=== PATIENT | female | born 1960 | race Caucasian/White ===

== ENCOUNTER → 2020-05-21 13:23 | Outpatient (CLI) | payer OTHER, SELFPAY ==
--- NOTE | ~2020-05-21 | MM_ITS ---
EXAMINATION: MM screening tamar BI w nataliia HISTORY: Screening TECHNIQUE: Craniocaudal and mediolateral oblique 3-D tomosynthesis images were obtained and synthetic 2-D images were generated. CAD analysis was submitted and interpreted. COMPARISON: No prior mammogram is available for comparison at this institution. BREAST PARENCHYMAL COMPOSITION: There are scattered areas of fibroglandular density. FINDINGS: There is no evidence of suspicious mass, calcification, or architectural distortion to sugg est malignancy in either breast. There has been no suspicious interval change. IMPRESSION: 1. No mammographic evidence of malignancy. 2. Recommend routine screening mammography in one year. BI-RADS Category 1: Negative Reviewed, dictated and finalized at location A.
== END ==
PROVIDERS: PCP Family Medicine; Visit Provider Nurse Practitioner Family
DX: Z12.31 Encounter for screening mammogram for malignant neoplasm of breast (principal)
CPT/HCPCS: 77063; 77067

== ENCOUNTER 2020-07-19 10:30 | Emergency (ER) | payer OTHER, SELFPAY ==
--- NOTE | ~2020-07-19 | XR_ITS ---
EXAMINATION: XR chest 2V 07/19/2020 10:53 INDICATION: Cough and fever PROCEDURE: 2 view chest COMPARISON: 05/19/2019 FINDINGS: The lungs are clear. The cardiomediastinal silhouette is within normal limits. There are no pleural effusions. There is no pneumothorax suspected. IMPRESSION: 1: NO ACUTE CARDIOPULMONARY DISEASE. Reviewed, dictated and finalized at location A. ON PICTURE SET WORKER
[2020-07-19 10:35] VITALS: BP 139/94; PULSE 83; RESP 20; TEMP 36.4; O2SAT 99
--- NOTE | 2020-07-19 10:43 | ED.GENADULT ---
HPI - General Adult General Chief complaint: Upper Respiratory Infection Stated complaint: fever Source: patient Mode of arrival: ambulatory Limitations: no limitations History of Present Illness HPI narrative: Patient presents with concerns about recent exposure to Covid. She indicates that she saw her jkmwgesd-hh-ovh on and her jdofgfsl-gp-vfg tested positive yesterday for Covid. Two days following her point of contact she developed a scratchy throat . Four days after the point of contact she developed a fever, productive cough of yellow sputum, headache, fatigue. She used a mercury thermometer to check her temperature and states it was over 100 ?F but she was unable to determine her exact temperature. She denies any chills, nausea, vomiting, diarrhea. She is not taking any medications for her symptoms. She does not smoke. Her also has a cough at this time. Related Data Allergies Allergy/AdvReac Type Severity Reaction Status Date / Time No Known Allergies Allergy Unknown Verified 07/16/20 11:34 Review of Systems Review of Systems: Narrative: CONSTITUTIONAL: Reports fever and fatigue. Denies chills, or sweats. EYES: Denies visual changes, redness, or discharge. ENT: Reports scratchy throat . Denies rhinorrhea, congestion, or otalgia. CARDIOVASCULAR: Denies chest pain, palpitations, or edema. RESPIRATORY: Denies dyspnea. Reports productive cough of yellow sputum. GASTROINTESTINAL: Denies abdominal pain, nausea, vomiting, or diarrhea. GENITOURINARY: Denies dysuria or hematuria. SKIN: Denies rash or itching. MUSCULOSKELETAL: Denies back pain, joint pain, or myalgia. NEUROLOGIC: Reports headache. Denies numbness, dizziness, or weakness. PSYCHIATRIC: Denies anxiety or depression. FOR[facility], [facility] Past Medical History Medical History (Updated 07/19/20 @ 11:27 by MALINDA Menendez, TREMAINE) Cough Fever Hypercalcemia Hyperlipidemia, unspecified Post-lymphadenectomy lymphedema of arm Thyroid disease Surgical History Surgical History H/O bilateral salpingo-oophorectomy H/O inguinal hernia repair Family History Family History Father Hypertension Family history of Alzheimer's disease Family history of diabetes mellitus in first degree relative Grandparent Family history of malignant neoplasm of uterus Other Alcoholism Alzheimer disease Aneurysm Cancer Cataracts, bilateral Diabetes mellitus Malignant neoplasm of prostate Osteoporosis Social History Social History Smoking status: Never smoker Second hand tobacco smoke exposure: No Alcohol intake: current Alcohol use details: social Substance use: never Living arrangements: with family Gender identity (if verbalized by the patient): Female Sexual Orientation (if Verbalized by the Patient): Straight or Heterosexual Exam Narrative: Exam Narrative: GENERAL: Well-appearing, well-nourished, and in no acute distress. HEAD: Normocephalic, atraumatic. EYES: PERRLA and EOMI. ENT: Nares clear, no rhinorrhea or epistaxis. Mucous membranes moist. Oropharynx without tonsillar hypertrophy exudate or other lesions. Bilateral TMs pearly castellanos nonbulging NECK: Supple. No adenopathy or masses. No carotid bruits or JVD CHEST: Clear to auscultation. No respiratory distress. No wheezes rales or rhonchi HEART: Regular rate and rhythm. No murmur heard. Normal peripheral pulses. ABDOMEN: Soft, nontender, nondistended, normal active bowel sounds. EXTREMITIES: Normal range of motion. No edema. SKIN: Warm, dry, no rash. NEURO: No focal deficits. Alert and oriented x3. PSYCH: Normal mood and affect. Course Course Emergency Course: 59-year-old female who presents for evaluation of fever, headache, productive cough and scratchy throat , after recent exposure to
== END 2020-07-19 11:38 | disposition home or self-care (01) ==
PROVIDERS: Emergency Provider Nurse Practitioner
DX: B34.9 Viral infection, unspecified (principal); Z20.828 Contact with and (suspected) exposure to other viral communicable diseases; E78.5 Hyperlipidemia, unspecified
CPT/HCPCS: 71046; 87081; 87804; 87880; 99213; G0463

== ENCOUNTER → 2021-07-02 15:55 | Outpatient (CLI) | payer OTHER, SELFPAY ==
--- NOTE | ~2021-07-02 | MM_ITS ---
EXAMINATION: MM screening tamar BI w nataliia HISTORY: Screening mammogram, family history of breast cancer in her mother. TECHNIQUE: Craniocaudal and mediolateral oblique 3-D tomosynthesis images were obtained and synthetic 2-D images were generated. CAD analysis was submitted and interpreted. COMPARISON: 05/21/2020, 02/23/2019 BREAST PARENCHYMAL COMPOSITION: There are scattered areas of fibroglandular density. FINDINGS: There is no evidence of suspicious mass, calcification, or architectural distortion to sugg est malignancy in either breast. There has been no suspicious interval change. IMPRESSION: 1. No mammographic evidence of malignancy. 2. Recommend routine screening mammography in one year. BI-RADS Category 1: Negative Reviewed, dictated and finalized at location A. ARMS SALES ASSOCIATE
== END ==
PROVIDERS: PCP Family Medicine; Visit Provider Nurse Practitioner
DX: Z12.31 Encounter for screening mammogram for malignant neoplasm of breast (principal)
CPT/HCPCS: 77063; 77067

== ENCOUNTER → 2021-08-23 10:19 | Outpatient (CLI) | payer OTHER, SELFPAY ==
--- NOTE | ~2021-08-23 | DEXA_ITS ---
Bone Density Report Name: FRANCOIS MARCOS Age: 60 Sex: Female Ethnicity: White Date of : 1960 Indication: osteopenia; hyperparathyroidism; parental hip fracture; height loss; Referring Provider: MINISTERIO, DEREJE Study: Bone densitometry was performed. Exam Date: August 23, 2021 Accession number: [id number] Bone Density: Region BMD T-score Z-score Classification AP Spine (L1-L4) 0.947 -0.9 0.7 Normal Femoral Neck (Left) 0.682 -1.5 -0.1 Osteopenia Total Hip (Left) 0.793 -1.2 -0.1 Osteopenia Femoral Neck (Right) 0.647 -1.8 -0.4 Osteopenia Total Hip (Right) 0.845 -0.8 0.3 Normal Total Hip Mean 0.819 -1.0 0.1 Normal World Health Organization criteria for BMD impression classify patients as: Normal (T-score at or above -1.0), Osteopenia (T-score between -1.0 and -2.5), or Osteoporosis (T-score at or below -2.5). 10-year Fracture Risk(1): Major Osteoporotic Fracture 17% Hip Fracture 1.1% Reported Risk Factors: [place] (), Neck BMD=0.647, BMI=33.0, parental fracture (1) FRAX(R) Version 3.08. Fracture probability calculated for an untreated patient. Fracture probability may be lower if the patient has received treatment. Previous Exams: Region Exam Age BMD T-score BMD Change BMD Change Date g/cm2 vs Baseline vs Previous AP Spine(L1-L4) 08/23/2021 60 0.947 -0.9 -0.110* -0.001 02/23/2019 58 0.948 -0.9 -0.109* -0.011 08/28/2014 53 0.959 -0.8 -0.098* -0.017 08/10/2012 51 0.976 -0.6 -0.081* -0.067* 06/28/2010 49 1.043 0.0 -0.014 -0.014 07/09/2008 47 1.057 0.1 Total Hip(Left) 08/23/2021 60 0.793 -1.2 -0.089* -0.009 02/23/2019 58 0.801 -1.2 -0.081* -0.014 08/28/2014 53 0.815 -1.0 -0.067* -0.016 08/10/2012 51 0.831 -0.9 -0.051* 0.005 06/28/2010 49 0.826 -1.0 -0.056* -0.056* 07/09/2008 47 0.882 -0.5 Total Hip(Right) 08/23/2021 60 0.845 -0.8 -0.054* 0.021 02/23/2019 58 0.824 -1.0 -0.075* -0.006 08/28/2014 53 0.830 -0.9 -0.069* -0.033* 08/10/2012 51 0.863 -0.7 -0.036* -0.013 06/28/2010 49 0.876 -0.5 -0.023 -0.023 07/09/2008 47 0.899 -0.4 *Denotes significance at 95% confidence level, LSC for AP Spine = 0.022 g/cm2, LSC for Total Hip = 0.027 g/cm2 Clinical Information Provided by Patient:
== END ==
PROVIDERS: Visit Provider Nurse Practitioner
DX: Z78.0 Asymptomatic menopausal state (principal); M85.852 Other specified disorders of bone density and structure, left thigh; M85.851 Other specified disorders of bone density and structure, right thigh
CPT/HCPCS: 77080

== ENCOUNTER 2021-09-13 09:35 | Outpatient (CLI) | payer OTHER, SELFPAY ==
[2021-09-13 17:11] LABS: Albumin Level 4.1 g/dL (3.5-5.1); Anion Gap 4 mmol/L (8-16); Blood Urea Nitrogen 15 mg/dL (7-17); Carbon Dioxide 25 mmol/L (22-30); Chloride 107 mmol/L (98-107); Estimated Glomerular Filt Rate > 60; Glucose 104 mg/dL (65-110); Phosphorus 3.4 mg/dL (2.5-4.5); Sodium 136 mmol/L (137-145)
[2021-09-13 17:20] LABS: Parathyroid Intact 144.9 pg/mL (7.5-53.5)
== END 2021-09-13 09:36 | disposition home or self-care (01) ==
LOC: ANHWCLAB 09:38
PROVIDERS: Referring Provider Internal Medicine Endocrinology, Diabetes & Metabolism; Visit Provider Internal Medicine Endocrinology, Diabetes & Metabolism
DX: E03.9 Hypothyroidism, unspecified (principal); E21.3 Hyperparathyroidism, unspecified
CPT/HCPCS: 36415; 80069; 82306; 83970

== ENCOUNTER → 2021-09-17 11:44 | Outpatient (CLI) | payer OTHER, SELFPAY ==
--- NOTE | ~2021-09-17 | US_ITS ---
EXAMINATION: US thyroid DATE: 09/17/2021 12:00 INDICATION: Nontoxic goiter, unspecified. TECHNIQUE: Multiple ultrasound images of the thyroid were obtained. COMPARISON: None. FINDINGS: The right thyroid lobe measures 3.3 x 0.8 x 1.0 cm. The left thyroid lobe measures 2.9 x 1.0 x 1.1 c m. The thyroid demonstrates heterogeneous echogenicity. Vascularity is normal. In the right thyroid lobe, there is a 5 mm solid, hypoechoic, wider than than tall nodule with smooth margin without echog enic foci (TI-RADS TR4). IMPRESSION: 1. Small thyroid nodule, likely not clinically significant. No follow-up is needed. Reviewed, dictated and finalized at location E. MAN IMPRESSION: 1. Small thyroid nodule, likely not clinically significant. No follow-up is nee ded.
== END ==
PROVIDERS: PCP Family Medicine; Visit Provider Internal Medicine Endocrinology, Diabetes & Metabolism
DX: R13.10 Dysphagia, unspecified (principal); E04.1 Nontoxic single thyroid nodule
CPT/HCPCS: 76536

== ENCOUNTER 2022-05-19 06:32 | Outpatient (CLI) | payer OTHER, SELFPAY ==
--- NOTE | ~2022-05-19 | NM_ITS ---
EXAMINATION: NM parathyroid imaging w spect DATE: 05/19/2022 11:04 INDICATION: Hyperparathyroidism TECHNIQUE: 20 mCi Tc99m regular date (sestamibi) was administered by intravenous route. Anterior imag es of the neck were obtained at 10 minutes and 2 hours. COMPARISON: Thyroid ultrasound dated 09/17/2021 FINDINGS/IMPRESSION: There is no focus of persistent activity in the area of the thyroid or mediastinum to suggest parathy roid adenoma. Reviewed, dictated and finalized at location A.
== END 2022-05-19 06:33 | disposition home or self-care (01) ==
PROVIDERS: PCP Family Medicine; Visit Provider Internal Medicine Endocrinology, Diabetes & Metabolism
DX: E21.3 Hyperparathyroidism, unspecified (principal)
CPT/HCPCS: 78071; A9500

== ENCOUNTER 2022-07-06 15:36 | Outpatient (CLI) | payer OTHER, SELFPAY ==
--- NOTE | ~2022-07-06 | XR_ITS ---
XR hand BI arthritis min 3V 07/06/2022 16:09 Indication: Bilateral hand pain Procedure: 3 views each hand Comparison: No prior studies for comparison. Findings: There is anatomic alignment. No fracture or traumatic malalignment. Normal mineralization. There is mild osteoarthritis of the left first carpal metacarpal joint. No erosive changes. No foreig n bodies. 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 Reviewed, dictated and finalized at location A. 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
--- NOTE | 2022-07-06 15:49 | ECG_ITS ---
Measurements Intervals [place] Rate: 74 P: 35 [place]: 149 QRS: -38 QRSD: 94 T: 8 QT: 365 QTc: 405 Interpretive Statements SINUS RHYTHM LEFT AXIS DEVIATION INCOMPLETE RIGHT BUNDLE BRANCH BLOCK LOW QRS VOLTAGE IN PRECORDIAL LEADS BORDERLINE T WAVE ABNORMALITY- ANT/INF LEADS BASELINE WANDER- AVR, AVL, AVF BORDERLINE ECG NO PREVIOUS ECG AVAILABLE FOR COMPARISON Electronically Signed On 07-07-2022 8:17:11 SALES OPERATIONS DIRECTOR by Forest Anand D.O.
== END 2022-07-06 15:37 | disposition home or self-care (01) ==
LOC: ANHCARD 15:38
PROVIDERS: PCP Family Medicine; Visit Provider Nurse Practitioner Family
DX: Z01.818 Encounter for other preprocedural examination (principal); M79.644 Pain in right finger(s); M79.645 Pain in left finger(s); M19.042 Primary osteoarthritis, left hand; I45.10 Unspecified right bundle-branch block
CPT/HCPCS: 73130; 93005

== ENCOUNTER → 2022-10-17 16:36 | Outpatient (CLI) | payer OTHER, SELFPAY ==
--- NOTE | ~2022-10-17 | MM_ITS ---
EXAMINATION: MM screening tamar BI w nataliia HISTORY: Screening mammogram, family history of breast cancer in her mother. TECHNIQUE: Craniocaudal and mediolateral oblique 3-D tomosynthesis images were obtained and synthetic 2-D images were generated. CAD analysis was submitted and interpreted. COMPARISON: 07/02/2021, 05/21/2020 BREAST PARENCHYMAL COMPOSITION: There are scattered areas of fibroglandular density. FINDINGS: RIGHT BREAST: No suspicious mass, calcification, or architectural distortion are identified to sugges t malignancy. There has been no suspicious interval change. LEFT BREAST: There is a possible mass in the middle third of the upper inner breast. IMPRESSION: 1. Possible left breast mass. 2. Additional mammographic views and possible breast ultrasound are recommended. BI-RADS Category 0: Incomplete: Needs additional imaging evaluation. Reviewed, dictated and finalized at location A. ISTICS EXPERT IMPRESSION: 1. Possible left breast mass. 2. Additional mammographic views and possible breast ultrasound are recommended . BI-RADS Category 0: Incomplete: Needs additional imaging evaluation.
== END ==
PROVIDERS: PCP Family Medicine; Visit Provider Nurse Practitioner
DX: Z12.31 Encounter for screening mammogram for malignant neoplasm of breast (principal); R92.8 Other abnormal and inconclusive findings on diagnostic imaging of breast
CPT/HCPCS: 77063; 77067

== ENCOUNTER → 2022-11-10 07:45 | Outpatient (CLI) | payer OTHER, SELFPAY ==
--- NOTE | ~2022-11-10 | MMUS_ITS ---
EXAMINATION: MM diagnostic tamar LT w nataliia, US breast LT limited HISTORY: Follow-up left breast mass TECHNIQUE: Additional 3-D tomosynthesis images of the left breast were performed and synthetic 2-D im ages were generated. CAD analysis was submitted and interpreted. High resolution left limited breast ultrasound was performed. COMPARISON: Comparison to multiple prior studies sequentially, with oldest reviewed study dated 08/28. BREAST PARENCHYMAL COMPOSITION: Breast composed of scattered areas of fibroglandular density FINDINGS: MAMMOGRAPHIC FINDINGS: There is a small mass in the upper inner quadrant of the left breast partially obscured by fibrogland ular tissue. ULTRASOUND: Limited left breast ultrasound: At 10:00, 7 cm from the nipple there is a 4 mm simple cyst correspond ing to the mass identified on mammography. No suspicious sonographic abnormalities to suggest maligna ncy. IMPRESSION: 1. No evidence for malignancy in the left breast. Benign findings. 2. Routine yearly screening mammogram and regular clinical breast examination are recommended. BI-RADS Category 2: Benign finding(s). Reviewed, dictated and finalized at location A. IMPRESSION: 1. No evidence for malignancy in the left breast. Benign findings. 2. Routine yearly screening mammogram and regular clinical breast examination a re recommended. BI-RADS Category 2: Benign finding(s).
== END ==
PROVIDERS: PCP Family Medicine; Visit Provider Obstetrics & Gynecology Gynecology
DX: R92.8 Other abnormal and inconclusive findings on diagnostic imaging of breast (principal)
CPT/HCPCS: 76642; 77061; 77065; G0279

== ENCOUNTER 2024-07-06 11:10 | Outpatient (CLI) | payer MEDICARE, SELFPAY ==
--- NOTE | ~2024-07-06 | MM_ITS ---
EXAMINATION: MM screening tamar BI w nataliia HISTORY: Screening mammogram TECHNIQUE: Craniocaudal and mediolateral oblique 3-D tomosynthesis images were obtained and synthetic 2-D images were generated. CAD analysis was submitted and interpreted. COMPARISON: 11/10/2022 diagnostic mammogram and Limited left breast ultrasound 01/2023, 07/02/2021 bilateral screening mammogram examinations BREAST PARENCHYMAL COMPOSITION: There are scattered areas of fibroglandular density. FINDINGS: There is no evidence of suspicious mass, calcification, or architectural distortion to sugg est malignancy in either breast. There has been no suspicious interval change. IMPRESSION: 1. No mammographic evidence of malignancy. 2. Recommend routine screening mammography in one year. BI-RADS Category 1: Negative Reviewed, dictated and finalized at location A. ST WORKER
== END 2024-07-06 11:11 | disposition home or self-care (01) ==
LOC: MICIMG 11:10
PROVIDERS: PCP Family Medicine; Visit Provider Obstetrics & Gynecology Gynecology
DX: Z12.31 Encounter for screening mammogram for malignant neoplasm of breast (principal)
CPT/HCPCS: 77063; 77067

== ENCOUNTER 2024-07-10 12:53 | Outpatient (CLI) | payer MEDICARE, SELFPAY ==
--- NOTE | ~2024-07-10 | DEXA_ITS ---
Bone Density Report Name: FRANCOIS MARCOS Age: 63 Sex: Female Ethnicity: White Date of : 1960 Indication: hyperparathyroidism; parental hip fracture; height loss; hysterectomy; Referring Provider: SANTANA BALL Study: Bone densitometry was performed. Exam Date: July 10, 2024 Accession number: [id number] Bone Density: Region BMD T-score Z-score Classification AP Spine(L1-L4) 1.035 -0.1 1.7 Normal Femoral Neck (Left) 0.654 -1.8 -0.2 Osteopenia Total Hip (Left) 0.895 -0.4 0.9 Normal Femoral Neck (Right) 0.668 -1.6 -0.1 Osteopenia Total Hip (Right) 0.930 -0.1 1.2 Normal Total Hip Mean 0.913 -0.3 1.1 Normal World Health Organization criteria for BMD impression classify patients as: Normal (T-score at or above -1.0), Osteopenia (T-score between -1.0 and -2.5), or Osteoporosis (T-score at or below -2.5). 10-year Fracture Risk(1): Major Osteoporotic Fracture 9.0% Hip Fracture 1.1% Reported Risk Factors: [place] (), Neck BMD=0.654, BMI=36.0 (1) FRAX(R) Version 3.08. Fracture probability calculated for an untreated patient. Fracture probability may be lower if the patient has received treatment. Clinical Information Provided by Patient: Parent has had a hip fracture Has used the following medications: Vitamin D, Calcium Has the following medical conditions: Hyperparathyroidism, Hysterectomy Patient maximum height was 64 Menopause Age: 38 Drinks caffeinated beverages Onset of menses at age 10 Number of children 2 Impression: The patient has low bone mass, based on the Left Femoral Neck T-score. The patient has an estimated ten-year risk of hip fracture of 1.1% and an estimated ten-year risk of major fracture of 9%, based on the WHO FRAX algorithm. The patient has risk factors, including: parental hip fracture. Discussion: BONE DENSITY IS LOW AT ONE OR MORE SKELETAL SITES. This patient's lowest T-score is low at one or more skeletal sites. It meets the World Health Organization's (WHO) criteria for ?low bone mass? (T-score between -1.0 and -2.5). The patient's 10-year risk of fracture as calculated by FRAX is less than the threshold where pharmacological therapy is recommended by the National Osteoporosis Foundation (NOF). However, all treatment decisions require clinical judgment and consideration of individual patient factors, including patient preferences, comorbidities, previous drug use, risk factors not captured in the FRAX model (e.g., frailty, falls, vitamin D deficiency, increased bone turnover, interval significant decline in bone density) and possible under or overestimation of fracture risk by FRAX. The patient should follow a healthful lifestyle (good nutrition with adequate calcium and vitamin D, and appropriate weight-bearing exercise). Follow-Up: Consider repeating this study in 2 to 3 years to reassess this patient's status, or sooner if there is some new clinical indication. Reported by: REEMA on 07/10/2024 2:08:00 PM. Reviewed, dictated and finalized at location AFreda ORTIZ
== END 2024-07-10 12:54 | disposition home or self-care (01) ==
PROVIDERS: PCP Family Medicine; Visit Provider Obstetrics & Gynecology Gynecology
DX: M85.89 Other specified disorders of bone density and structure, multiple sites (principal); Z78.0 Asymptomatic menopausal state
CPT/HCPCS: 77080

== ENCOUNTER 2025-02-28 15:45 | Outpatient (CLI) | payer MEDICARE, SELFPAY ==
--- NOTE | ~2025-02-28 | US_ITS ---
US thyroid 02/28/2025 16:04 Indication: Hypothyroidism Procedure: High-resolution thyroid ultrasound Comparison: Ultrasound dated 09/17/2021 Findings: Right lobe measures 2.4 x 0.9 x 0.9 cm. In the lateral aspect of the right lobe there is a solid oval hypoechoic mass measuring 10 x 7 x 5 mm which is wider than tall, smoothly marginated with well-defined margins. No microcalcifications or abnormal vascularity. Left lobe measures 2 x 1 x 1.2 cm and contains a 5 mm cyst. Isthmus is unremarkable. No suspicion for lymphadenopathy. Impression: 1: Right thyroid nodule measuring 10 mm with low suspicion features, TR 3. Recommend follow-up ultras ound in 12-24 months. 2: Left thyroid cysts, by 9 appearance. No follow-up needed. Reviewed, dictated and finalized at location A. Impression: 1: Right thyroid nodule measuring 10 mm with low suspicion features, TR 3. Christian mmend follow-up ultrasound in 12-24 months. 2: Left thyroid cysts, by 9 appearance. No follow-up needed.
== END 2025-02-28 15:46 | disposition home or self-care (01) ==
LOC: MICIMG 15:45
PROVIDERS: PCP Family Medicine; Visit Provider Nurse Practitioner Family
DX: E03.9 Hypothyroidism, unspecified (principal); E04.2 Nontoxic multinodular goiter; Z90.89 Acquired absence of other organs; Z98.890 Other specified postprocedural states
CPT/HCPCS: 76536

== ENCOUNTER 2025-07-08 11:19 | Outpatient (CLI) | payer MEDICARE, SELFPAY ==
--- NOTE | ~2025-07-08 | MM_ITS ---
EXAMINATION: MM screening tamar BI w nataliia HISTORY: Screening TECHNIQUE: Craniocaudal and mediolateral oblique 3-D tomosynthesis images were obtained and synthetic 2-D images were generated. CAD analysis was submitted and interpreted. COMPARISON: Comparison to multiple prior studies sequentially, with oldest reviewed study dated 02/23/2019. BREAST PARENCHYMAL COMPOSITION: Not dense: There are scattered areas of fibroglandular density. FINDINGS: There is developing asymmetry in the upper aspect of the right breast on MLO view without corresponding finding on CC view. The left breast is stable without evidence for malignancy. IMPRESSION: 1. Developing right breast asymmetry superiorly on MLO view, middle third. 2. Additional mammographic views and possible breast ultrasound are recommended. BI-RADS Category 0: Incomplete: Needs additional imaging evaluation. Reviewed, dictated and finalized at location O. DREN'S BOOK AUTHOR IMPRESSION: 1. Developing right breast asymmetry superiorly on MLO view, middle third. 2. Additional mammographic views and possible breast ultrasound are recommended . BI-RADS Category 0: Incomplete: Needs additional imaging evaluation.
== END 2025-07-08 11:20 | disposition home or self-care (01) ==
LOC: MICIMG 11:21
PROVIDERS: PCP Family Medicine; Visit Provider Nurse Practitioner
DX: Z12.31 Encounter for screening mammogram for malignant neoplasm of breast (principal); R92.8 Other abnormal and inconclusive findings on diagnostic imaging of breast
CPT/HCPCS: 77063; 77067